=== PATIENT | female | born 1970 ===

== ENCOUNTER 2016-09-10 18:05 | Observation (INO) ==
[2016-09-10] MEDS ORDERED: ASPIRIN 325 MG TABLET PO STA (18:22)
[2016-09-10] MEDS ORDERED: NITROGLYCERIN 2% OINT 1 INCH/GM PACK TOP STA (18:22)
--- NOTE | 2016-09-10 18:25 | EKG Report ---
Stationary ECG Study [facility] ER Test Date: 09/10/2016 6:14:08 PM Pat Name: VALERIA HEATH Department: Room: Gender: F Nursing Staff Development Coordinator: : 1970 Requested by: Bebeto Delong Order Number: [id number] Reading MD: WHITNEY CERVANTES Intervals [place] Rate: 49 P: 53 [place]: 164 QRS: 100 QRSD: 103 T: 133 QT: 497 QTc: 467 Interpretive Statements SINUS BRADYCARDIA BORDERLINE RIGHT AXIS DEVIATION POSSIBLE INFERIOR MYOCARDIAL INFARCTION, PROBABLY OLD IF PRESENT Electronically Signed On 09-14-16 07:30:26 OCULAR CARE TECHNICIAN by WHITNEY CERVANTES [email or web address]
--- NOTE | 2016-09-10 18:28 | Emergency Department Note ---
Arrival - Arrival Chief Complaint: Chest Pain Stated Complaint: + TROPONIN ED Nursing Triage Note: PT TRANSFERED FROM [facility] FOR EVALUATION OF EPIGASTRIC PAIN AND + TROPONIN. PT HAD EPISODE OF BRADYCARDIA IN ROUTE WITH EMS AND RECIVED ATROPINE IV. Mode of Arrival: Stretcher Source: Patient Time Seen by Provider: 09/10/16 18:22 - History of Present Illness HPI Narrative: This 46-year-old female presents on transfer from [facility] where she presented for complaints of recurrent epigastric discomfort associated with nausea, burping, belching, and water brash for the past several days. During the course of workup she bradyed down to the 40s with especially irritating epigastric burning associated with a bump in troponins. For this reason she was transferred here for further evaluation. Currently the patient appears in no acute distress although during the ambulance ride here she did have to receive atropine because of the a drop in her heart rate to the low 40s. Currently her heart rate is in the mid 50s and she has no complaints of midepigastric burning at the moment. Onset (ago): week(s) (patient presents 1 week post-onset of symptoms) Allergies/Adverse Reactions: Allergies Allergy/AdvReac Type Severity Reaction Status Date / Time No Known Allergies Allergy Unverified 09/10/16 18:13 Review of System - Review of System 12 point system: reviewed and no additional remarkable complaints except as stated - Review of System Constitutional: Present: as per HPI Respiratory: Present: as per HPI Cardiovascular: Present: as per HPI Gastrointestinal: Present: as per HPI Medical,Surgical,& Family Hx - Medical History Cardio: History of: Hypertension Endocrine: History of: Diabetes Mellitus (IDDM) Gastrointestinal: History of: GERD - Social History Smoking Status: Unknown if ever smoked Exam Physical Examination: GENERAL: Morbidly obese female in no acute distress. HEENT: Normocephalic. No trauma. Moist mucous membranes. EOMI. PERRLA. ENT clear NECK: Supple. No adenopathy. CARDIAC: Regular. No murmurs. Heart rate 49 CHEST: Clear to auscultation. No respiratory distress. O2 sat 96% tender to palpation at the lower left anterior axillary line ABDOMEN: Soft. Nontender. Active bowel sounds. EXTREMITIES: No trauma. Normal ROM. No pedal edema. SKIN: No diaphoresis. No rash. NEURO: Alert. Neuro intact. No focal deficits. Vital Signs: Vital Signs Temperature 97.4 F L 09/10/16 19:04 Pulse Rate 52 L 09/10/16 19:04 Respiratory Rate 18 09/10/16 19:04 Blood Pressure 147/82 09/10/16 19:04 O2 Sat by Pulse Oximetry 96 09/10/16 18:30 Course - Reevaluation(s) Reevaluation #1: Discussed with patient the obvious, she will be referred for further evaluation. - Consultations Consultation #1: Discussed with Dr. Renae, hospitalist, who will admit for further evaluation treatment. Results - Labs Labs: I have reviewed the negative cardiac. - Impressions EKG sinus bradycardia at 49 with normal AR interval and QRS duration. Right axis deviation. Evidence of possible inferior IL of undetermined age - Diagnostic Findings Procedure: Chest x-ray: image reviewed by me, report reviewed by me (normal chest, no acute disease.) Disposition Clinical Impression: bradycardia, reflux Case discussed with: patient, patient's family Condition: Stable Time of Disposition: 19:43
[2016-09-10 18:35] LABS: PT Patient Result 10.2 SECS; Partial Thromboplastin Time 21.9 SECS (0-40)
[2016-09-10 18:43] LABS: Troponin I Only < 0.015 NG/ML (0.00-0.045)
[2016-09-10] MEDS ORDERED: ASPIRIN 325 MG TABLET ONE (18:45)
[2016-09-10] MEDS ORDERED: NITROGLYCERIN 2% OINT 1 INCH/GM PACK TOP ONE (18:45)
[2016-09-10] MEDS ORDERED: PANTOPRAZOLE 40 MG VIAL IV STA (18:58)
[2016-09-10] MEDS ORDERED: METOCLOPRAMIDE 10 MG/2 ML VIAL IV STA (18:58)
--- NOTE | 2016-09-10 19:06 | XRay Report ---
History: Chest pain Date: 09/10/2016 Study: Chest x-ray AP portable Comparison exam: Outside chest x-ray September 08, 2016 There is borderline cardiomegaly without change. The mediastinal contours are similar. The pulmonary vasculature is not engorged. There is no gross pleural effusion. There is mild platelike subsegmental atelectasis in the left lung base. The lungs and pleural spaces are otherwise clear. Osseous structures are unchanged. Impression: Mild platelike subsegmental atelectasis in the left lung base. Borderline cardiomegaly PROCEDURE INTERPRETED AT [facility] DEPARTMENT OF RADIOLOGY Final Report Signed by: Dr. Priti Bonilla
[2016-09-10] MEDS ORDERED: PANTOPRAZOLE 40 MG VIAL IV ONE (19:36)
[2016-09-10] MEDS ORDERED: METOCLOPRAMIDE 10 MG/2 ML VIAL ONE (19:37)
--- NOTE | 2016-09-10 19:50 | Hospitalist History & Physical ---
Assessment and Plan - Time spent with patient Time spent with patient: Greater than 30 minutes (1) Epigastric pain Status: Acute Assessment and plan: Patient will be admitted, begun on IV proton pump inhibitor, intravenous antiemetics, intravenous analgesics. Will await further laboratory studies and reevaluate in the a.m. If persistent and felt to be noncardiac, she may deserve formal gastroenterology consultation. He was concerned that this may be of cardiac origin, therefore will obtain serial cardiac isoenzymes however feel that she is at low risk. Current Visit: Yes (2) Diabetes mellitus Status: Chronic Assessment and plan: We will continue her routine home medical therapy and place her on Accu-Cheks and sliding scale insulin. Current Visit: Yes (3) Hypertension Status: Chronic Assessment and plan: She is currently well controlled. Will continue current medical regimen. Current Visit: Yes Qualifiers: Hypertension type: essential hypertension Qualified Code(s): I10 - Essential (primary) hypertension (4) Hyperlipidemia Status: Chronic Assessment and plan: Continue statin therapy. Current Visit: Yes (5) GE reflux Status: Chronic Assessment and plan: Beginning IV proton pump inhibitor. No plans above. Current Visit: Yes (6) Sinus bradycardia Status: Chronic Assessment and plan: Patient has sinus bradycardia and is on several medications which may cause this however she is asymptomatic, therefore we will not disturb any of her current regimen. Current Visit: Yes (7) Anemia Status: Chronic Assessment and plan: We will obtain stools for occult blood, anemia panel, and follow up hematocrit in the a.m. Current Visit: Yes History of Present Illness Chief complaint: Epigastric pain, nausea History of present illness: Ms. Duron is a 46 year old female who was transferred from [facility] secondary to epigastric pain, bradycardia, elevated troponin. She states that she has had epigastric discomfort for approximately 5 days with associated nausea and vomiting. She describes the pain as being constant, pressure-like, and worsened with oral intake. She denies any coffee-ground emesis, melena, hematochezia, fever, chills, chest pain, shortness of breath, cough, sputum production, palpitations, seizure, syncope, focal motor weakness or paresthesias. She does have a history of hypertension, diabetes mellitus, GE reflux disease. Home Medications Medication Instructions Recorded Confirmed Type Gabapentin Cap/Tab [Neurontin 600 mg PO BID 09/10/16 09/10/16 History Cap/Tab] Hydroxychloroquine [Plaquenil] 400 mg PO DAILY 09/10/16 09/10/16 History Insulin Aspart [NovoLOG FlexPen] 15 unit SUBCUT BIDAC 09/10/16 09/10/16 History Insulin Detemir [Levemir FlexPen] 46 unit SUBCUT BID W/MEALS 09/10/16 09/10/16 History Metoprolol Succinate Xl [Toprol Xl] 100 mg PO DAILY 09/10/16 09/10/16 History Pantoprazole Tab [Protonix Tab] 40 mg PO BID 09/10/16 09/10/16 History RX: Lisinopril 20 mg PO BID 09/10/16 09/10/16 History RX: Simvastatin 20 mg PO BEDTIME 09/10/16 09/10/16 History Ranitidine Tab [Zantac Tab] 150 mg PO BID 09/10/16 09/10/16 History Saxagliptin HCl [Onglyza] 2.5 mg PO DAILY 09/10/16 09/10/16 History Tramadol HCl [Tramadol Tab] 50 mg PO DAILY PRN 09/10/16 09/10/16 History amLODIPine [Norvasc] 10 mg PO DAILY 09/10/16 09/10/16 History cloNIDine TAB [Catapres Tab] 0.2 mg PO BID 09/10/16 09/10/16 History Allergies Allergy/AdvReac Type Severity Reaction Status Date / Time No Known Allergies Allergy Unverified 09/10/16 18:13 Medical,Surgical,& Family Hx - Medical History Cardio: History of: Hypertension Endocrine: History of: Diabetes Mellitus (IDDM) Gastrointestinal: History of: GERD - Surgical History Abdominal Surgeries: Surgical HX of: Cholecystectomy Reproductive Surgeries: Surgical HX of;: Hysterectomy - Family History Family History: noncontributory - Social History Smoking Status: Never smoker Frequency of Alcohol Use: None Type of Drug Use: None Marital Status: Lives With:: Spouse Functional capacity: independent ambulation 12 point system: reviewed and no additional remarkable complaints except as stated Exam - Constitutional Vitals: Period Temp Pulse Resp BP Sys/Lai Pulse Ox Last 24 Hr 97.4 F-97.4 F 48-52 16-18 147-150/82-92 96-96 General appearance: no acute distress - Head Head exam: Present: normocephalic, atraumatic - Eye Eye exam: Present: EOMI Pupils: Present: WINIFRED - ENT ENT exam: Present: normal oropharynx - Neck Neck exam: Present: normal inspection. Absent: lymphadenopathy, meningismus, tenderness, thyromegaly - Respiratory Respiratory exam: Present: clear to auscultation bilaterally. Absent: rales, rhonchi, wheezes - Cardiovascular Cardiovascular exam: Present: bradycardia, regular rate and rhythm. Absent: gallop, JVD, rubs, systolic murmur - GI/Abdominal GI/Abdominal exam: Present: normal bowel sounds, tenderness (Mild tenderness in the epigastrium without rebound), soft. Absent: distended, mass, organomegaly, rebound - Extremities Exam Extremities exam: Present: normal capillary refill. Absent: calf tenderness, edema - Back Exam Back exam: Present: normal inspection. Absent: CVA tenderness (L), CVA tenderness (R) - Neurological Exam Neurological exam: Present: alert, oriented X3, CN II-XII intact. Absent: motor sensory deficit - Psychiatric Psychiatric exam: Present: normal affect, normal mood. Absent: agitated, anxious - Skin Skin exam: Present: warm, dry. Absent: erythema, rash Results - Labs Lab Results: I have reviewed the past 24 hour labs Labs: Laboratory from [facility] reveals white blood count of 5.7, hemoglobin 11.4, hematocrit 32.7, platelet count 225,000, glucose 171, BUN 25, creatinine 1.5, sodium 158, potassium 3.9, chloride 116, liver function studies within normal limits, amylase 45, lipase 161, troponin 0.10, CK 133 with MB of 1.4. - EKG EKG shows: bradycardia, sinus rhythm - Diagnostic Findings Procedure: Chest x-ray: report reviewed by me
[2016-09-10 20:08] LABS: Alanine Aminotransferase 35 U/L (13-56); Albumin 1.5 G/DL (3.4-5.0); Alkaline Phosphatase 192 U/L (45-117); Amylase 46 U/L (25-115); Aspartate Amino Transferase 32 U/L (0-37); Bilirubin,Direct < 0.1 MG/DL (0.0-0.20); Bilirubin,Indirect 0.3 MG/DL (0.0-1.0); Bilirubin,Total < 0.39 MG/DL (0.2-1.0)
[2016-09-10] MEDS ORDERED: GLUCAGON 1 MG VIAL IM PRN (21:00)
[2016-09-10] MEDS ORDERED: DEXTROSE 50% 25 GM/50 ML VIAL IV PRN (21:00)
[2016-09-10] MEDS: GABAPENTIN 300 MG CAPSULE PO SCH (21:46)
[2016-09-10] MEDS: SIMVASTATIN 20 MG TABLET PO SCH (21:46)
[2016-09-10] MEDS: ENOXAPARIN 40 MG/0.4 ML SYRINGE SUBCUT SCH (21:47)
[2016-09-10] MEDS: LISINOPRIL 20 MG TABLET PO SCH (21:49)
[2016-09-10] MEDS: SODIUM CHLORIDE 0.45% 1,000 ML IV SCH (21:50)
[2016-09-10 22:19] LABS: Basophils % 0.4 % (0.0-0.8); Eosinophils # 0.1 10*3/uL (0.0-0.87); Hematocrit 34.3 VOL% (35.7-47.0); Hemoglobin 11.3 GM/DL (12.0-16.0); Immature Granulocytes % 0.2 %; Immature Granulocytes Absolute 0.01 #; Lymphocytes # 1.7 10*3/uL (1.4-4.0); Lymphocytes % 33.6 % (21.3-54.2); Mean Corpuscular HGB Conc 32.9 GM/DL (32-36); Mean Corpuscular Hemoglobin 28 PG (27-34); Mean Corpuscular Volume 86.2 FL (87-102); Mean Platelet Volume 10.7 FL (9.6-12.0); Monocytes # 0.3 10*3/uL (0.11-0.8); Monocytes % 5.9 % (1.7-12.7); Neutrophils % 58.9 % (38.7-73.9); Platelet Count 161 T/CUMM (130-400); Red Blood Count 3.98 MC/CUMM (3.8-5.5); Red Cell Distribution Width 14.2 % (9.3-17.3); White Blood Count 5.1 T/CUMM (4-12)
[2016-09-10 22:52] LABS: Folate 10.5 NG/ML (5.4-24.0); Vitamin B12 358 PG/ML (211-911)
[2016-09-10 23:07] LABS: Calcium 8.2 MG/DL (8.5-10.1); Osmolality,Calculated 293.6 MOS/KG (273-304); Potassium 3.4 MMOL/L (3.5-5.1)
[2016-09-10 23:22] LABS: Sedimentation Rate-Westergren 71 MM/HR (0-20)
--- NOTE | 2016-09-11 00:01 | EKG Report ---
Please refer to the EKG image. Final interpretation is pending.
--- NOTE | 2016-09-11 03:12 | EKG Report ---
Please refer to the EKG image. Final interpretation is pending.
--- NOTE | 2016-09-11 06:21 | EKG Report ---
Stationary ECG Study [facility] Test Date: 09/10/2016 9:08:41 PM Pat Name: VALERIA HEATH Department: Room: 117 Gender: F Fabric Lay Out Worker: GUILLERMO QUIJANO : 1970 Requested by: Baljeet Olivas Order Number: [id number] Reading MD: WHITNEY CERVANTES Intervals [place] Rate: 43 P: 23 DC: 162 QRS: 8 QRSD: 101 T: 163 QT: 514 QTc: 459 Interpretive Statements SINUS BRADYCARDIA MODERATE T-WAVE ABNORMALITY, CONSIDER LATERAL ISCHEMIA Electronically Signed On 09-14-16 07:34:05 SENIOR COBOL DEVELOPER by WHITNEY CERVANTES [email or web address]
[2016-09-11 07:38] LABS: Hemoglobin A1 (Alkaline) 97.7 % (96.5-98.5); Hemoglobin A2 (Alkaline) 2.3 % (1.5-3.5)
[2016-09-11] MEDS: ONDANSETRON 4 MG/2 ML VIAL IV PRN ×2 (07:44→22:17)
[2016-09-11] MEDS: MORPHINE 2 MG/1 ML SYRINGE IV PRN ×2 (07:47→22:20)
[2016-09-11 07:54] LABS: Basophils % 0.3 % (0.0-0.8); Eosinophils % 0.5 % (0.00-10.9); Hemoglobin 11.2 GM/DL (12.0-16.0); Immature Granulocytes % 0.5 %; Immature Granulocytes Absolute 0.03 #; Lymphocytes # 1.5 10*3/uL (1.4-4.0); Lymphocytes % 24.8 % (21.3-54.2); Mean Corpuscular HGB Conc 32.9 GM/DL (32-36); Mean Corpuscular Hemoglobin 28 PG (27-34); Mean Corpuscular Volume 85.9 FL (87-102); Mean Platelet Volume 10.7 FL (9.6-12.0); Monocytes # 0.3 10*3/uL (0.11-0.8); Monocytes % 5.5 % (1.7-12.7); Neutrophils # 4.2 10*3/uL (1.4-7.4); Neutrophils % 68.4 % (38.7-73.9); Platelet Count 170 T/CUMM (130-400); Red Blood Count 3.96 MC/CUMM (3.8-5.5); Red Cell Distribution Width 14.1 % (9.3-17.3); White Blood Count 6.2 T/CUMM (4-12)
[2016-09-11 08:32] LABS: Alanine Aminotransferase 30 U/L (13-56); Albumin 2.6 G/DL (3.4-5.0); Alkaline Phosphatase 163 U/L (45-117); Aspartate Amino Transferase 28 U/L (0-37); Bilirubin,Total < 0.39 MG/DL (0.2-1.0); Blood Urea Nitrogen 21 MG/DL (7-18); Calcium 8.3 MG/DL (8.5-10.1); Glucose 105 MG/DL (74-106); Osmolality,Calculated 290.7 MOS/KG (273-304); Potassium 3.9 MMOL/L (3.5-5.1); Sodium 145 MMOL/L (136-145); Total Protein 6.7 G/DL (6.4-8.3)
--- NOTE | 2016-09-11 08:48 | Hospitalist Progress Note ---
Assessment and Plan (1) Epigastric pain Status: Acute Assessment and plan: Could be due to gastroparesis with history of diabetes and long-term history. History of GERD may contributing to the pain she is already on PPI. Consult GI bili Current Visit: Yes (2) Anemia Status: Chronic Assessment and plan: Stable Current Visit: Yes (3) Diabetes mellitus Status: Chronic Assessment and plan: Blood sugar is controlled continue current regimen Current Visit: Yes (4) Hypertension Status: Chronic Assessment and plan: Continue current blood pressure medications except I will change the dose of beta milan Current Visit: Yes Qualifiers: Hypertension type: essential hypertension Qualified Code(s): I10 - Essential (primary) hypertension (5) Sinus bradycardia Status: Chronic Assessment and plan: Probably due to medications patient has been on beta milan and clonidine. I will cut down the metoprolol to 50 mg daily Current Visit: Yes (6) Elevated troponin Status: Acute Assessment and plan: Patient had elevated troponin at outside facilities but here it has been normal. I'm not sure what caused it possible hypertension with bradycardia we' ll consult cardiology but I doubt it is secondary to acute coronary syndrome Current Visit: Yes Hospitalist: Subjective Interval history: Ms. Duron is a 46 year old female with hypertension and diabetes mellitus and GERD. She was admitted yesterday as transfer from [facility]. She presented with epigastric pain bradycardia and had the hypertension with elevated troponin. According to patient she has epigastric discomfort/pain . She had the EGD last year and was told to have a acid reflux was listed to be on Protonix at home. She had troponin of 0.1 at outside facility. She had hypotension as low as 102/39. She her heart rate was in the 40s. She had been on multiple medications at home including clonidine and metoprolol 100 mg daily Exam - Constitutional Vitals: Period Temp Pulse Resp BP Sys/Lai Pulse Ox Last 24 Hr 97.9 F-98.1 F 43-46 11-16 119-128/60-72 95-97 General appearance: no acute distress, over weight - Eye Eye exam: Present: EOMI Pupils: Present: WINIFRED - Respiratory Respiratory exam: Present: clear to auscultation bilaterally. Absent: rales, rhonchi - Cardiovascular Cardiovascular exam: Present: bradycardia, regular rate and rhythm - GI/Abdominal GI/Abdominal exam: Present: normal bowel sounds, soft. Absent: distended, tenderness (but mild discomfort in epigastric area no rigidity or rebound) - Extremities Exam Extremities exam: Present: normal inspection. Absent: edema - Neurological Exam Neurological exam: Present: alert, oriented X3 Results - Labs CBC & BMP: 09/11/16 07:14 09/11/16 07:14 Lab Results: I have reviewed the past 24 hour labs
[2016-09-11] MEDS ORDERED: METOPROLOL SUCCINATE XL 50 MG TABLET PO ONE (08:55)
[2016-09-11] MEDS: INSULIN LISPRO 100 UNIT/ML SUBCUT SCH ×2 (08:57→16:42)
[2016-09-11] MEDS: INSULIN GLARGINE 100 UNIT/ML SUBCUT SCH ×2 (08:57→16:42)
[2016-09-11] MEDS ORDERED: METOPROLOL SUCCINATE XL 100 MG TABLET PO SCH (09:00)
[2016-09-11] MEDS: HYDROXYCHLOROQUINE 200 MG TABLET PO SCH (09:24)
[2016-09-11] MEDS: ASPIRIN EC 325 MG TABLET PO SCH (09:24)
[2016-09-11] MEDS: GABAPENTIN 300 MG CAPSULE PO SCH ×2 (09:24→20:27)
[2016-09-11] MEDS: sitaGLIPtin 100 MG TABLET PO SCH (09:24)
[2016-09-11] MEDS: PANTOPRAZOLE 40 MG VIAL IV SCH (09:25)
[2016-09-11] MEDS: SODIUM CHLORIDE 0.45% 1,000 ML IV SCH ×3 (09:29→20:32)
--- NOTE | 2016-09-11 10:56 | Gastrointestinal Consult Note ---
<Diane Borjas - Last Filed: 09/11/16 10:50> Assessment and Plan (1) Epigastric pain Status: Acute Assessment and plan: 09/11-Long history of episodes of epigastric pain with nausea, vomiting with hx of gastroparesis, now with worsening pain and N/V x 1 week with inability to eat /drink. Elevated troponin on admission, now normal. Cardiac consult pending. Last EGD 2011 with gastritis, GES with delayed emptying. Plan and addendum to follow by Dr Steinberg. Current Visit: Yes History of Present Illness Chief complaint: Abd pain, nausea, vomiting History of present illness: Ms. Duron is a 46 year old female who presented to the hospital with onset of nausea, vomiting and epigastric pain x 1 week. Pt states that last Sunday she had onset of worsening epigastric pain, that does not radiate, with nausea and vomiting .She states initially she vomited up undigested food however midweek it was solely bile. She states that everytime she eats she has onset of epigastric pain, which she states lingers for a long time and is not easily relieved. She states she stopped eating on however continued to have some nausea and dry heaves. The pain was not as severe as long as she didnt eat. She reports that she has reflux that is not controlled with Protonix BID. Denies any dysphagia. Denies any melena or hematochezia. She had her gallbladder removed 20 years ago however did not have history of gallstones. States that she does not take any NSAIDs. States her weight fluctuates regularly. Her blood sugar is reported to be controlled recenlty. She also had some bradycardia on admission as well as elevated troponin which has now normalized. She has a history of gastritis in the past and notation seen regarding gastroparesis. She states she has had the nausea and vomiting episodes with the epigastric pain off and on for years however not as intense as the last week. Gastric emptying scan in 2011 showed delayed emptying. EGD in 2011 showed gastritis. She had a flex sig in 1994 for rectal bleeding with internal hemmorhoids noted. Has history of uterine cancer in 2008 with hysterectomy and radiation. Home Medications Medication Instructions Recorded Confirmed Type Gabapentin Cap/Tab [Neurontin 600 mg PO BID 09/10/16 09/10/16 History Cap/Tab] Hydroxychloroquine [Plaquenil] 400 mg PO DAILY 09/10/16 09/10/16 History Insulin Aspart [NovoLOG FlexPen] 15 unit SUBCUT BIDAC 09/10/16 09/10/16 History Insulin Detemir [Levemir FlexPen] 46 unit SUBCUT BID W/MEALS 09/10/16 09/10/16 History Lisinopril 20 mg PO BID 09/10/16 09/10/16 History Metoprolol Succinate Xl [Toprol Xl] 100 mg PO DAILY 09/10/16 09/10/16 History Pantoprazole Tab [Protonix Tab] 40 mg PO BID 09/10/16 09/10/16 History Ranitidine Tab [Zantac Tab] 150 mg PO BID 09/10/16 09/10/16 History Saxagliptin HCl [Onglyza] 2.5 mg PO DAILY 09/10/16 09/10/16 History Simvastatin 20 mg PO BEDTIME 09/10/16 09/10/16 History Tramadol HCl [Tramadol Tab] 50 mg PO DAILY PRN 09/10/16 09/10/16 History amLODIPine [Norvasc] 10 mg PO DAILY 09/10/16 09/10/16 History cloNIDine TAB [Catapres Tab] 0.2 mg PO BID 09/10/16 09/10/16 History Allergies Allergy/AdvReac Type Severity Reaction Status Date / Time No Known Allergies Allergy Unverified 09/10/16 18:13 Medical,Surgical,& Family Hx - Medical History Cardio: History of: Hypertension Endocrine: History of: Diabetes Mellitus (IDDM) Gastrointestinal: History of: GERD - Surgical History Abdominal Surgeries: Surgical HX of: Cholecystectomy Reproductive Surgeries: Surgical HX of;: Hysterectomy - Social History Smoking Status: Never smoker Frequency of Alcohol Use: None Type of Drug Use: None 12 point system: reviewed and no additional remarkable complaints except as stated - Constitutional Constitutional: Present: as per HPI - EENT Eyes: Present: as per HPI Ears: Present: as per HPI Nose, mouth and throat: Present: as per HPI - Cardiovascular Cardiovascular: Present: as per HPI - Respiratory Respiratory: Present: as per HPI - Gastrointestinal Gastrointestinal: Present: as per HPI, abdominal pain, dyspepsia, heartburn, nausea, vomiting - Genitourinary Genitourinary: Present: as per HPI - Musculoskeletal Musculoskeletal: Present: as per HPI - Neurological Neurological: Present: as per HPI - Psychiatric Psychiatric: Present: as per HPI - Endocrine Endocrine: Present: as per HPI - Hematologic/Lymphatic Hematologic/Lymphatic: Present: as per HPI Exam - Constitutional Vitals: Period Temp Pulse Resp BP Sys/Lai Pulse Ox Last 24 Hr 97.8 F-98.1 F 43-49 11-18 119-129/60-83 95-97 General appearance: no acute distress, over weight - Head Head exam: Present: normal inspection, normocephalic - Eye Eye exam: Present: other (lids and conjunctiva unremarkable). Absent: scleral icterus - ENT ENT exam: Present: normal exam, normal oropharynx - Neck Neck exam: Present: normal inspection - Respiratory Respiratory exam: Present: clear to auscultation bilaterally. Absent: rales, rhonchi, wheezes - Cardiovascular Cardiovascular exam: Present: regular rate and rhythm. Absent: diastolic murmur , JVD, systolic murmur - GI/Abdominal GI/Abdominal exam: Present: normal bowel sounds, soft. Absent: ascites, distended, mass, organomegaly, tenderness - Extremities Exam Extremities exam: Present: normal inspection, full ROM - Back Exam Back exam: Present: normal inspection - Neurological Exam Neurological exam: Present: alert, oriented X3 - Psychiatric Psychiatric exam: Present: normal affect, normal mood - Skin Skin exam: Present: normal color, warm, dry Results - Labs CBC & BMP: 09/11/16 07:14 09/11/16 07:14 Lab Results: I have reviewed the past 24 hour labs <Dionte Steinberg - Last Filed: 09/11/16 18:19> History of Present Illness History of present illness: Ms. Duron is a 46 year old female Exam - Constitutional Vitals: Period Temp Pulse Resp BP Sys/Lai Pulse Ox Last 24 Hr 96.9 F-98.1 F 43-56 11-20 119-144/60-83 95-97 Results - Labs CBC & BMP: 09/11/16 07:14 09/11/16 07:14
[2016-09-11] MEDS: amLODIPine 10 MG TABLET PO SCH (11:22)
[2016-09-11] MEDS: LISINOPRIL 20 MG TABLET PO SCH ×2 (11:23→20:28)
[2016-09-11] MEDS: SIMVASTATIN 20 MG TABLET PO SCH (20:28)
[2016-09-11] MEDS: ENOXAPARIN 40 MG/0.4 ML SYRINGE SUBCUT SCH (20:29)
--- NOTE | 2016-09-12 00:17 | Cardiology Consult Note ---
I, Yue Alexander, RN, am scribing for, and in the presence of, Alex Alegria MD 00:16. Assessment and Plan (1) Elevated troponin Status: Acute Assessment and plan: Patient was noted to have a troponin of 0.1 at outside facility. However, troponin has been negative 4 checks here at [facility]. [I saw the patient on 09/11/13 , early in the day . The note is being finished later ]The patient is epigastric pain. GI related. Although the outside troponin was elevated, troponins here are negative, suggesting it may be a false positive finding. I do not believe she has ACS/ischemia. At Meanwhile, her bradycardia treated by holding the metoprolol Current Visit: Yes (2) Epigastric pain Status: Acute Assessment and plan: Patient continues to complain of epigastric pain. This is being worked up per GI. Current Visit: Yes (3) Diabetes mellitus Status: Chronic Assessment and plan: Continue current plan of care. Current Visit: Yes (4) GE reflux Status: Chronic Assessment and plan: Continue current plan of care. Current Visit: Yes (5) Hyperlipidemia Status: Chronic Assessment and plan: Continue current plan of care with statin. Will check lipid panel in the morning. Current Visit: Yes (6) Hypertension Status: Chronic Assessment and plan: Metoprolol has been stopped due to patient's bradycardia. Blood pressure is currently well controlled, continue current plan of care. Current Visit: Yes Qualifiers: Hypertension type: essential hypertension Qualified Code(s): I10 - Essential (primary) hypertension (7) Sinus bradycardia Status: Acute Assessment and plan: Metoprolol has been held due to patient's bradycardia. This is clinically stable with heart rates in the 50s. Patient is asymptomatic. Current Visit: Yes (8) Obesity Status: Chronic Assessment and plan: Counseled patient on the importance of weight loss. Current Visit: Yes History of Present Illness - Data of Consult Patient: new to practice Consult date: 09/11/16 Requesting Physician: Andreas Cavanaugh Primary care physician: Claude Delgado III. - Consult Narrative Reason for consult: elevated troponin and bradycardia History of present illness: Ms. Duron is a 46 year old female without known coronary artery disease. 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 She tells me that her primary care provider is Dr. Delgado. She was transferred to our facility from [facility] for further evaluation of abdominal pain and elevated troponin. Her troponin was noted to be 0.1 at outside facility on September 10. Patient has risk factors significant for obesity, dyslipidemia, diabetes, sedentary lifestyle and hypertension. She reports that she has never smoked in the past and does not have any significant family history of heart disease. She has a past medical history of GERD and had an EGD in 2011 which revealed gastritis. GI has been consulted for further evaluation of patient's abdominal pain. Patient was in her usual state of health until last Sunday when she began to experience epigastric pain. This pain is nonradiating and is associated with nausea, vomiting, dizziness and diarrhea. Patient denies chest pain, shortness of breath, palpitations, orthopnea, melena, hematochezia, dysphagia and PND. She reports that she only experiences the epigastric pain after eating meals. However, she is unable to tell me what type of foods aggravate her pain. This pain is not easily relieved and usually lasts several hours after meals. She reports that activity does not worsen her pain. She denies any worsening of activity intolerance or dyspnea upon exertion. Patient was seen and evaluated in the ICU. She is awake and in no acute distress. Her is at bedside. She reports that she continues to have mild epigastric pain. Her abdomen is tender upon palpation in the epigastric region. Her troponin has been negative 4 checks here at [facility]. However, at [facility] her troponin was noted to be 0.1. She continues to to be chest pain-free. Patient has been bradycardic this admission with heart rates in the 40's. She continues to be bradycardic today with heart rate in the 50s. Her metoprolol 100 mg has been held per hospitalist. Labs have been reviewed and are unremarkable. Her EKG reveals sinus bradycardia with nonspecific ST [id number] changes. CC: Andreas Cavanaugh M.D. - Home Medications and Allergies Home Medications: Home Medications Medication Instructions Recorded Confirmed Type Gabapentin Cap/Tab [Neurontin 600 mg PO BID 09/10/16 09/10/16 History Cap/Tab] Hydroxychloroquine [Plaquenil] 400 mg PO DAILY 09/10/16 09/10/16 History Insulin Aspart [NovoLOG FlexPen] 15 unit SUBCUT BIDAC 09/10/16 09/10/16 History Insulin Detemir [Levemir FlexPen] 46 unit SUBCUT BID W/MEALS 09/10/16 09/10/16 History Lisinopril 20 mg PO BID 09/10/16 09/10/16 History Metoprolol Succinate Xl [Toprol Xl] 100 mg PO DAILY 09/10/16 09/10/16 History Pantoprazole Tab [Protonix Tab] 40 mg PO BID 09/10/16 09/10/16 History Ranitidine Tab [Zantac Tab] 150 mg PO BID 09/10/16 09/10/16 History Saxagliptin HCl [Onglyza] 2.5 mg PO DAILY 09/10/16 09/10/16 History Simvastatin 20 mg PO BEDTIME 09/10/16 09/10/16 History Tramadol HCl [Tramadol Tab] 50 mg PO DAILY PRN 09/10/16 09/10/16 History amLODIPine [Norvasc] 10 mg PO DAILY 09/10/16 09/10/16 History cloNIDine TAB [Catapres Tab] 0.2 mg PO BID 09/10/16 09/10/16 History Allergies/Adverse Reactions: Allergies Allergy/AdvReac Type Severity Reaction Status Date / Time No Known Allergies Allergy Unverified 09/10/16 18:13 - Constitutional Constitutional: Absent: anorexia, chills, fatigue, fever(s), frequent falls, headache(s), malaise, night sweats, weakness, weight gain, weight loss - Cardiovascular Cardiovascular: Present: lightheadedness. Absent: chest pain at rest, chest pain with activity, claudication, diaphoresis, dyspnea, dyspnea on exertion, edema, radiating jaw, neck or arm pain, orthopnea, palpitations, PND - Respiratory Respiratory: Absent: cough, dyspnea, hemoptysis, dyspnea on exertion, wheezing, pain on inspiration, change in phlegm color - Gastrointestinal Gastrointestinal: Present: abdominal pain (For 1 week), diarrhea, heartburn, nausea, vomiting. Absent: coffee ground emesis, dyspepsia, dysphagia, hematemesis, hematochezia, melena - Neurological Neurological: Present: dizziness. Absent: abnormal gait, behavioral changes, frequent falls, syncope - Psychiatric Psychiatric: Absent: anxiety, depression, panic attacks Medical,Surgical,& Family Hx - Medical History Cardio: History of: Hypertension Endocrine: History of: Diabetes Mellitus (IDDM), Dyslipidemia Gastrointestinal: History of: GERD, GI Problems (Gastritis) - Surgical History Abdominal Surgeries: Surgical HX of: Cholecystectomy, EGD Reproductive Surgeries: Surgical HX of;: Hysterectomy - Social History Smoking Status: Never smoker Frequency of Alcohol Use: None Type of Drug Use: None Physical Examination Vital Signs Temp Pulse Resp BP Pulse Ox 97.4 F L 52 L 18 147/82 96 09/10/16 18:05 09/10/16 18:05 09/10/16 18:05 09/10/16 18:05 09/10/16 18:05 General: Present: Appears Well, No Apparent Distress Neck: Present: Supple Neck, Midline Trachea, No JVD/HJR, No Masses, No Bruit, No Lymphadenopathy, No Thyromegaly Cardiac: Present: Regular Rhythm, S1/S2, No Murmur, Bradycardia, Other (Sinus rhythm with bradycardia). Absent: Gallop Lungs: Present: Normal Exam, Clear Ascult./Percussion, Normal Breath Sounds, No Wheeze, Rales, Rhonchi Abdomen: Present: Soft, Active Bowel Sounds, No Masses, Tender Skin: Present: Clear. Absent: Rash, Suspicious Lesions, Ulceration Extremities: Present: Normal Gait, No Clubbing, No Cyanosis, No Edema, Normal Upper Extr. Pulses, Normal Lower Extr. Pulses Result/EKG - Labs CBC & BMP: 09/11/16 07:14 09/11/16 07:14 Lab Results: I have reviewed the past 24 hour labs Labs: Laboratory Results - last 24 hr 09/10/16 09/10/16 09/10/16 21:37 21:37 21:37 WBC 5.1 RBC 3.98 Hgb 11.3 L Hct 34.3 L MCV 86.2 L MCH 28 MCHC 32.9 RDW 14.2 Plt Count 161 MPV 10.7 Neut % (Auto) 58.9 Lymph % (Auto) 33.6 [place] % (Auto) 5.9 Eos % (Auto) 1.0 Baso % (Auto) 0.4 Neut # (Auto) 3.0 Lymph # (Auto) 1.7 [place] # (Auto) 0.3 Eos # (Auto) 0.1 Baso # (Auto) 0.0 Immature Gran % 0.2 Nucleated RBC % 0.0 Immature Gran # 0.01 Nucleated RBCs # 0.00 Anemia Panel Interp See comment ESR Westergren 71 H Absolute Retic 0.1 Percent Retic 2.0 H Retic Hgb Equivalent 32.3 Hemoglobin A1 Hemoglobin A2 Hgb ELP Interp Sodium Potassium Chloride Carbon Dioxide Anion Gap BUN Creatinine GFR Calculation BUN/Creatinine Ratio Glucose POC Glucose Calculated Osmolality Calcium Ferritin 19.0 Total Bilirubin AST ALT Alkaline Phosphatase Troponin I < 0.015 Total Protein Albumin Globulin Albumin/Globulin Ratio Vitamin B12 Folate BELA (IgG-AHG) BELA, Polyspecific 09/10/16 09/10/16 09/10/16 21:37 21:37 22:18 WBC RBC Hgb Hct MCV MCH MCHC RDW Plt Count MPV Neut % (Auto) Lymph % (Auto) [place] % (Auto) Eos % (Auto) Baso % (Auto) Neut # (Auto) Lymph # (Auto) [place] # (Auto) Eos # (Auto) Baso # (Auto) Immature Gran % Nucleated RBC % Immature Gran # Nucleated RBCs # Anemia Panel Interp ESR Westergren Absolute Retic Percent Retic Retic Hgb Equivalent Hemoglobin A1 97.7 Hemoglobin A2 2.3 Hgb ELP Interp See comment Sodium 146 H Potassium 3.4 L Chloride 107 Carbon Dioxide 29 Anion Gap 13.4 BUN 24 H Creatinine 1.10 H GFR Calculation 68 BUN/Creatinine Ratio 21.00 H Glucose 106 POC Glucose Calculated Osmolality 293.6 Calcium 8.2 L Ferritin Total Bilirubin AST ALT Alkaline Phosphatase Troponin I Total Protein Albumin Globulin Albumin/Globulin Ratio Vitamin B12 358 Folate 10.5 BELA (IgG-AHG) Negative BELA, Polyspecific Negative 09/11/16 09/11/16 09/11/16 00:27 07:14 07:14 WBC 6.2 RBC 3.96 Hgb 11.2 L Hct 34.0 L MCV 85.9 L MCH 28 MCHC 32.9 RDW 14.1 Plt Count 170 MPV 10.7 Neut % (Auto) 68.4 Lymph % (Auto) 24.8 [place] % (Auto) 5.5 Eos % (Auto) 0.5 Baso % (Auto) 0.3 Neut # (Auto) 4.2 Lymph # (Auto) 1.5 [place] # (Auto) 0.3 Eos # (Auto) 0.0 Baso # (Auto) 0.0 Immature Gran % 0.5 Nucleated RBC % 0.0 Immature Gran # 0.03 Nucleated RBCs # 0.00 Anemia Panel Interp ESR Westergren Absolute Retic Percent Retic Retic Hgb Equivalent Hemoglobin A1 Hemoglobin A2 Hgb ELP Interp Sodium Potassium Chloride Carbon Dioxide Anion Gap BUN Creatinine GFR Calculation BUN/Creatinine Ratio Glucose POC Glucose Calculated Osmolality Calcium Ferritin Total Bilirubin AST ALT Alkaline Phosphatase Troponin I < 0.015 < 0.015 Total Protein Albumin Globulin Albumin/Globulin Ratio Vitamin B12 Folate BELA (IgG-AHG) BELA, Polyspecific 09/11/16 09/11/16 07:14 08:11 WBC RBC Hgb Hct MCV MCH MCHC RDW Plt Count MPV Neut % (Auto) Lymph % (Auto) [place] % (Auto) Eos % (Auto) Baso % (Auto) Neut # (Auto) Lymph # (Auto) [place] # (Auto) Eos # (Auto) Baso # (Auto) Immature Gran % Nucleated RBC % Immature Gran # Nucleated RBCs # Anemia Panel Interp ESR Westergren Absolute Retic Percent Retic Retic Hgb Equivalent Hemoglobin A1 Hemoglobin A2 Hgb ELP Interp Sodium 145 Potassium 3.9 Chloride 108 H Carbon Dioxide 30 Anion Gap 10.9 BUN 21 H Creatinine 1.00 GFR Calculation 76 BUN/Creatinine Ratio 21.00 H Glucose 105 POC Glucose 104 Calculated Osmolality 290.7 Calcium 8.3 L Ferritin Total Bilirubin < 0.39 AST 28 ALT 30 Alkaline Phosphatase 163 H Troponin I Total Protein 6.7 Albumin 2.6 L Globulin 4.1 H Albumin/Globulin Ratio 0.6 L Vitamin B12 Folate BELA (IgG-AHG) BELA, Polyspecific - EKG EKG results: interpreted by me, sinus rhythm EKG shows: bradycardia I, Alex Alegria MD, personally performed the services described in this documentation, ascribed by Yue Alexander, RN in my presence, and it is both accurate and complete .
[2016-09-12 06:27] LABS: Risk Ratio 2.64; VLDL CHOLESTEROL 31.4 MG/DL
[2016-09-12] MEDS: SODIUM CHLORIDE 0.45% 1,000 ML IV SCH ×2 (06:30→13:11)
[2016-09-12] MEDS ORDERED: fentaNYL 100 MCG/2 ML VIAL ONE (10:16)
[2016-09-12] MEDS ORDERED: LIDOCAINE 2% 5 ML VIAL ONE (10:33)
[2016-09-12] MEDS ORDERED: PROPOFOL 200 MG/20 ML VIAL IV ONE (10:33)
--- NOTE | 2016-09-12 10:36 | History and Physical Update ---
History and Physical Update - Physical Exam Mental Status: alert and oriented Heart: regular rate and rhythm Lung: clear to auscultation Abdomen: within normal limits Vitals: within normal limits
--- NOTE | 2016-09-12 10:45 | Anesthesia ---
Anesthesia Post OP - Post Ansesthetic Evaluation Patient seen in post op: Yes Resp: within normal limits CV: within normal limits Mental: within normal limits Temp: within normal limits [id number]: within normal limits Nausea and Vomiting: within normal limits Pain: within normal limits
--- NOTE | 2016-09-12 10:45 | Operative Note ---
Date of procedure: 09/12/16 Pre-op diagnosis: recurrent nausea and vomiting Procedure: EGD 46-year-old female with recurrent nausea and vomiting questionable history of gastroparesis the past now for EGD to look for evidence of gastric outlet obstruction. Informed consent was obtained the patient She was sedated with Mac anesthesia wrist each protocol. Patient placed in left lateral decubitus position the Olympus flexible video upper endoscope was inserted into the oral cavity under direct vision the esophagus was intubated. Findings esophagus-normal esophageal mucosa throughout. No significant esophageal stricture or esophagitis was seen no varices were noted. Stomach-normal insufflation normal mucosa to direct retroflex views of the body fundus cardia antral stomach. Pylorus-normal Duodenum-normal bulb the duodenum to the third portion of duodenum. The procedure was terminated. Postop diagnosis: #1 recurrent nausea and vomiting no clear etiology on EGD suspected gastroparesis will recheck gastric emptying scan in a.m. Anesthesia: MAC Surgeon / Physician: Dionte Steinberg Estimated blood loss: none Specimens: none sent Condition: stable Disposition: post procedure unit Results - Labs CBC & BMP: 09/11/16 07:14 09/11/16 07:14 Discharge Plan - Discharge Medications No Action Gabapentin Cap/Tab [Neurontin Cap/Tab] 600 mg PO BID amLODIPine [Norvasc] 10 mg PO DAILY Saxagliptin HCl [Onglyza] 2.5 mg PO DAILY Hydroxychloroquine [Plaquenil] 400 mg PO DAILY Lisinopril 20 mg PO BID cloNIDine TAB [Catapres Tab] 0.2 mg PO BID Ranitidine Tab [Zantac Tab] 150 mg PO BID Tramadol HCl [Tramadol Tab] 50 mg PO DAILY PRN PRN Reason: Pain Insulin Detemir [Levemir FlexPen] 46 unit SUBCUT BID W/MEALS Insulin Aspart [NovoLOG FlexPen] 15 unit SUBCUT BIDAC Simvastatin 20 mg PO BEDTIME Pantoprazole Tab [Protonix Tab] 40 mg PO BID Metoprolol Succinate Xl [Toprol Xl] 100 mg PO DAILY - Follow Up or Referral - Forms/Instructions
--- NOTE | 2016-09-12 11:56 | Hospitalist Progress Note ---
Assessment and Plan (1) Epigastric pain Status: Acute Assessment and plan: Likely due to gastroparesis have negative EGD. Patient followed by the GI will continue a PPI Current Visit: Yes (2) Anemia Status: Chronic Assessment and plan: Stable Current Visit: Yes (3) Diabetes mellitus Status: Chronic Assessment and plan: Blood sugar is controlled continue current regimen Current Visit: Yes (4) Hypertension Status: Chronic Assessment and plan: Blood pressure is elevated today she did not take her medications morning will restart on that except metoprolol. She isn't on thiazide diuretics may be due to be added if the blood pressure is not controlled Current Visit: Yes Qualifiers: Hypertension type: essential hypertension Qualified Code(s): I10 - Essential (primary) hypertension (5) Sinus bradycardia Status: Acute Assessment and plan: Probably due to medications patient had been on beta milan and clonidine. She is off metoprolol now heart rate is around 60 now Current Visit: Yes (6) Elevated troponin Status: Acute Assessment and plan: Patient had elevated troponin at outside facilities but here it has been normal. I'm not sure what caused it possible hypertension with bradycardia. Cardiology was consulted and feel the same that acute coronary syndrome is not suspected Current Visit: Yes Hospitalist: Subjective Interval history: Ms. Duron is a 46 year old female with hypertension and diabetes mellitus and GERD. She was admitted yesterday as transfer from [facility]. She presented with epigastric pain bradycardia and had the hypotension with elevated troponin. According to patient she has epigastric discomfort/pain . She had the EGD last year and was told to have a acid reflux was listed to be on Protonix at home. She had troponin of 0.1 at outside facility. She had hypotension as low as 102/39. She her heart rate was in the 40s. She had been on multiple medications at home including clonidine and metoprolol 100 mg daily. I had cut down the metoprolol from 100-50 mg daily. Patient was seen by the cardiology and had completely stopped the medication Patient also seen by the GI and underwent EGD this morning and it was reported negative they plan to do gastric emptying studies tomorrow morning. Patient has nausea otherwise no vomiting. She reports constipation Exam - Constitutional Vitals: Period Temp Pulse Resp BP Sys/Lai Pulse Ox Last 24 Hr 96.9 F-97.7 F 54-63 18-20 138-189/71-99 93-99 General appearance: no acute distress - Respiratory Respiratory exam: Present: clear to auscultation bilaterally. Absent: rales, rhonchi - Cardiovascular Cardiovascular exam: Present: bradycardia (heart rate is borderline), regular rate and rhythm. Absent: tachycardia - GI/Abdominal GI/Abdominal exam: Present: normal bowel sounds, soft. Absent: distended, tenderness (but mild discomfort on palpation left side upper abdomen) - Extremities Exam Extremities exam: Present: normal inspection. Absent: edema - Neurological Exam Neurological exam: Present: alert, oriented X3 Results - Labs CBC & BMP: 09/11/16 07:14 09/11/16 07:14 Lab Results: I have reviewed the past 24 hour labs
[2016-09-12] MEDS: ASPIRIN EC 325 MG TABLET PO SCH (13:09)
[2016-09-12] MEDS: INSULIN LISPRO 100 UNIT/ML SUBCUT SCH ×2 (13:09→21:17)
[2016-09-12] MEDS: sitaGLIPtin 100 MG TABLET PO SCH (13:09)
[2016-09-12] MEDS: INSULIN GLARGINE 100 UNIT/ML SUBCUT SCH ×2 (13:09→21:19)
[2016-09-12] MEDS: HYDROXYCHLOROQUINE 200 MG TABLET PO SCH (13:10)
[2016-09-12] MEDS: GABAPENTIN 300 MG CAPSULE PO SCH ×2 (13:10→21:18)
[2016-09-12] MEDS: LISINOPRIL 20 MG TABLET PO SCH (13:10)
[2016-09-12] MEDS: amLODIPine 10 MG TABLET PO SCH (13:10)
[2016-09-12] MEDS: PANTOPRAZOLE 40 MG VIAL IV SCH (13:11)
--- NOTE | 2016-09-12 15:17 | Cardiology Progress Note ---
Pedro Salas Vanessa, RN, am scribing for, and in the presence of, Alfredo Domingo MD 15:17. Assessment and Plan - Time spent with patient Time spent with patient: Less than 30 minutes (1) Elevated troponin Status: Acute Assessment and plan: 1. Sinus bradycardia secondary to Toprol, her fatigue and dizziness have resolved now that it is been discontinued 2. She is ruled out for myocardial infarction by serial cardiac markers 3. Given her hypertension which is lisinopril to valsartan HCTZ 320/25 daily 4. Epigastric discomfort; GI workup in progress 5. Follow-up in 3 weeks with blood pressure check and lab 6. 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 History of hypertension, diabetes, hyperlipidemia, gastritis, obesity, sedentary lifestyle. Transferred from [facility] on 09/10/16 for further evaluation of abdominal pain and an abnormal troponin level of 0.10. While experiencing some apparent severe discomfort, she also had some transient bradycardia with heart rate down to the 40's for which she was given IV atropine per EMS en route to [facility]. Heart rate increased to 50's, appears to now be more toward baseline at 60. There was no AV block, and patient was asymptomatic. No chest pain, shortness of breath, palpitation, presyncope. Did have associated N/V with mid epigastric pain. No acute changes in EKG. Observed in ICU overnight and seen by Dr. Alegria prior to transfer to floor yesterday afternoon. Serial cardiac biomarkers repeated at [facility] with negative troponin and normal CPK. Metoprolol not resumed upon admission due to bradycardia. Has been seen and evaluated by GI. Subsequent EGD for recurrent nausea and vomiting. No significant findings. Gastroparesis is suspected, and patient to have gastric emptying scan tomorrow. Slightly drowsy this afternoon post EGD, but she rouses easily, coherent. present at bedside. Denies chest pain, shortness of breath, palpitation , presyncope, or other. No further nausea or vomiting this afternoon and denies epigastric pain at this time. Says "everything is calm right now." Reports she ate lunch, including green beans, and is tolerating without complaint. Hypertensive this afternoon with SBP 150-190 and DBP 80-100. Heart rate average of 60 bpm. Exam (Progress Note) - Constitutional Vitals: Period Temp Pulse Resp BP Sys/Lai Pulse Ox Last 24 Hr 96.9 F-97.2 F 54-63 18-20 144-189/71-99 93-99 General appearance: no acute distress, over weight Exam: General: Present: Appears Well, No Apparent Distress Neck: Present: Supple Neck, Midline Trachea, No JVD/HJR, No Masses, No Bruit, No Lymphadenopathy, No Thyromegaly Cardiac: Present: Regular Rhythm (transient sinus fredy in 50's), S1/S2, No Murmur, . Absent: Gallop Lungs: Present: Normal Exam, Clear Ascult./Percussion, Normal Breath Sounds, No Wheeze, Rales, Rhonchi Abdomen: Present: Soft, Active Bowel Sounds, No Masses, Tender Skin: Present: Clear. Absent: Rash, Suspicious Lesions, Ulceration Extremities: Present: Normal Gait, No Clubbing, No Cyanosis, No Edema, Normal Upper Extr. Pulses, Normal Lower Extr. Pulses - Head Head exam: Present: normal inspection, normocephalic, atraumatic - Neck Neck exam: Present: normal inspection - Respiratory Respiratory exam: Absent: stridor, wheezes - Cardiovascular Cardiovascular exam: Present: regular rate and rhythm. Absent: diastolic murmur , rubs - GI/Abdominal GI/Abdominal exam: Present: tenderness, soft - Extremities Exam Extremities exam: Absent: edema Result/EKG - Labs CBC & BMP: 09/11/16 07:14 09/11/16 07:14 Lab Results: I have reviewed the past 24 hour labs Labs: Laboratory Results - last 24 hr 09/11/16 09/11/16 09/12/16 16:34 19:06 04:52 POC Glucose 97 199 H Triglycerides 157 H Cholesterol 124 LDL Cholesterol 70.0 VLDL Cholesterol 31.4 HDL Cholesterol 47 Heart Disease Risk Ratio 2.64 09/12/16 09/12/16 09/12/16 08:06 09:40 11:51 POC Glucose 134 H 99 120 H Triglycerides Cholesterol LDL Cholesterol VLDL Cholesterol HDL Cholesterol Heart Disease Risk Ratio - EKG EKG results: interpreted by me, WNL EKG shows: sinus rhythm (heart rate 60's) IJose L Randall Scott, MD, personally performed the services described in this documentation, ascribed by Sammi Vasquez RN in my presence, and it is both accurate and complete 517 .
[2016-09-12] MEDS: VALSARTAN/HCTZ 160-12.5 MG TABLET PO SCH (21:17)
[2016-09-12] MEDS: ENOXAPARIN 40 MG/0.4 ML SYRINGE SUBCUT SCH (21:18)
[2016-09-12] MEDS: SIMVASTATIN 20 MG TABLET PO SCH (21:18)
[2016-09-13] MEDS: INSULIN LISPRO 100 UNIT/ML SUBCUT SCH ×2 (07:30→17:53)
[2016-09-13] MEDS: INSULIN GLARGINE 100 UNIT/ML SUBCUT SCH ×2 (08:00→17:52)
--- NOTE | 2016-09-13 09:40 | Gastrointestinal Progress Note ---
<SuadDiane Wendy - Last Filed: 09/13/16 09:37> Assessment and Plan (1) Epigastric pain Status: Acute Assessment and plan: 09/13-EGD findings noted. Gastric emptying scan pending at present. Plan and addendum to follow by Dr Steinberg. 09/11-Long history of episodes of epigastric pain with nausea, vomiting with hx of gastroparesis, now with worsening pain and N/V x 1 week with inability to eat /drink. Elevated troponin on admission, now normal. Cardiac consult pending. Last EGD 2011 with gastritis, GES with delayed emptying. Plan and addendum to follow by Dr Steinberg. Current Visit: Yes Gastroenterology - PN: Subj Interval history: CC: Nausea Pt is seen, awake and alert with spouse at side. She just returned from first part of gastric emptying scan and has to return at 11 for second part. She states her nausea has been about the same with no vomiting. EGD results noted to show no acute findings. Abdomen is soft, nontender. ROS: Denies SOB or chest pain Exam (Progress Note) - Constitutional Vitals: Period Temp Pulse Resp BP Sys/Lai Pulse Ox Last 24 Hr 97.5 F-98.6 F 56-96 18-19 144-175/67-99 93-99 General appearance: normal weight, no acute distress - Head Head exam: Present: normal inspection, normocephalic - Eye Eye exam: Present: other (lids and conjunctiva unremarkable). Absent: scleral icterus - ENT ENT exam: Present: normal exam, normal oropharynx - Neck Neck exam: Present: normal inspection - Respiratory Respiratory exam: Present: clear to auscultation bilaterally. Absent: rales, rhonchi, wheezes - Cardiovascular Cardiovascular exam: Present: regular rate and rhythm. Absent: diastolic murmur , JVD, systolic murmur - GI/Abdominal GI/Abdominal exam: Present: normal bowel sounds, soft. Absent: ascites, distended, mass, organomegaly, tenderness - Extremities Exam Extremities exam: Present: normal inspection, full ROM - Back Exam Back exam: Present: normal inspection - Neurological Exam Neurological exam: Present: alert, oriented X3 - Psychiatric Psychiatric exam: Present: normal affect, normal mood - Skin Skin exam: Present: normal color, warm, dry Results - Labs CBC & BMP: 09/11/16 07:14 09/11/16 07:14 Lab Results: I have reviewed the past 24 hour labs <Dionte Steinberg - Last Filed: 09/13/16 16:53> Exam (Progress Note) - Constitutional Vitals: Period Temp Pulse Resp BP Sys/Lai Pulse Ox Last 24 Hr 97.1 F-97.7 F 59-96 18-18 144-175/67-91 96-98 Results - Labs CBC & BMP: 09/11/16 07:14 09/11/16 07:14
--- NOTE | 2016-09-13 12:50 | Nuclear Medicine Report ---
NM gastric emptying study Indication: Diabetes. Recurrent nausea and vomiting. Gastric emptying Technique: 500 ?Ci technetium 99 labeled sulfur colloid was given by mouth in solid food (scrambled egg sandwich). Time activity curves of the stomach with linear fit analysis was performed. Findings: Linear fit progression analysis calculates activity half-life of 303 minutes. Linear fit is noncontributory. At 252 minutes, 40% emptying is noted, indicating 60% retained material in the stomach. Impression: Significant delayed gastric emptying. PROCEDURE INTERPRETED AT [facility] DEPARTMENT OF RADIOLOGY Final Report Signed by: Casey Rao M.D.
[2016-09-13] MEDS: VALSARTAN/HCTZ 160-12.5 MG TABLET PO SCH (12:59)
[2016-09-13] MEDS: HYDROXYCHLOROQUINE 200 MG TABLET PO SCH (13:00)
[2016-09-13] MEDS: amLODIPine 10 MG TABLET PO SCH (13:01)
[2016-09-13] MEDS: sitaGLIPtin 100 MG TABLET PO SCH (13:01)
[2016-09-13] MEDS: GABAPENTIN 300 MG CAPSULE PO SCH ×2 (13:01→20:18)
[2016-09-13] MEDS: ASPIRIN EC 325 MG TABLET PO SCH (13:01)
[2016-09-13] MEDS: PANTOPRAZOLE 40 MG VIAL IV SCH (13:03)
[2016-09-13] MEDS ORDERED: DOCUSATE SODIUM 100 MG CAPSULE PO PRN (14:14)
--- NOTE | 2016-09-13 14:20 | Hospitalist Progress Note ---
Assessment and Plan (1) Epigastric pain Status: Acute Assessment and plan: Due to gastroparesis being treated with the IV metoclopramide by GI service. We will need to follow if patient has improvement of the symptoms. And to follow follow GI recommendation Current Visit: Yes (2) Anemia Status: Chronic Assessment and plan: Stable Current Visit: Yes (3) Diabetes mellitus Status: Chronic Assessment and plan: Blood sugar is controlled continue current regimen Current Visit: Yes (4) Hypertension Status: Chronic Assessment and plan: She is off beta milan. Cardiology has adjusted her antihypertensive medications and monitor the blood pressure reading had been elevated except one reported this morning. Current Visit: Yes Qualifiers: Hypertension type: essential hypertension Qualified Code(s): I10 - Essential (primary) hypertension (5) Sinus bradycardia Status: Acute Assessment and plan: Probably due to medications patient has been on beta milan and clonidine. She has been off beta milan now and heart rate has improved Current Visit: Yes (6) Constipation Status: Acute Assessment and plan: Add colace Current Visit: Yes Hospitalist: Subjective Interval history: Ms. Duron is a 46 year old female with hypertension and diabetes mellitus and GERD. She was admitted yesterday as transfer from [facility]. She presented with epigastric pain bradycardia and had the hypotension with elevated troponin. According to patient she has epigastric discomfort/pain . She had the EGD last year and was told to have a acid reflux was listed to be on Protonix at home. She had troponin of 0.1 at outside facility. She had hypotension as low as 102/39. She her heart rate was in the 40s. She had been on multiple medications at home including clonidine and metoprolol 100 mg daily. I had cut down the metoprolol from 100-50 mg daily. Patient was seen by the cardiology and had completely stopped the medication Patient also seen by the GI and underwent EGD 09/12/15 and and it was reported negative. Gastric emptying study done today showed significant delaying of gastric emptying. GI has ordered Reglan 10 mg IV every 6. This morning when patient was seen she had complained of nausea or vomiting. She does have constipation. She was given food to check gastric emptying had caused some abdominal discomfort pointed to epigastric area Exam - Constitutional Vitals: Period Temp Pulse Resp BP Sys/Lai Pulse Ox Last 24 Hr 97.5 F-98.6 F 60-96 18-18 144-175/67-89 96-98 General appearance: no acute distress - Respiratory Respiratory exam: Present: clear to auscultation bilaterally. Absent: rhonchi, stridor - Cardiovascular Cardiovascular exam: Present: regular rate and rhythm. Absent: tachycardia - GI/Abdominal GI/Abdominal exam: Present: normal bowel sounds, soft. Absent: tenderness ( except mild discomfort on palpation at the epigastric area) - Extremities Exam Extremities exam: Present: normal inspection. Absent: edema - Neurological Exam Neurological exam: Present: alert, oriented X3 Results - Labs CBC & BMP: 09/11/16 07:14 09/11/16 07:14 Lab Results: I have reviewed the past 24 hour labs
[2016-09-13] MEDS: METOCLOPRAMIDE 10 MG/2 ML VIAL IV SCH ×2 (17:55→23:39)
[2016-09-13] MEDS: ENOXAPARIN 40 MG/0.4 ML SYRINGE SUBCUT SCH (20:18)
[2016-09-13] MEDS: SIMVASTATIN 20 MG TABLET PO SCH (20:18)
[2016-09-13] MEDS: ONDANSETRON 4 MG/2 ML VIAL IV PRN (20:33)
[2016-09-14] MEDS: METOCLOPRAMIDE 10 MG/2 ML VIAL IV SCH (06:41)
--- NOTE | 2016-09-14 07:52 | Hospitalist Progress Note ---
Assessment and Plan (1) Epigastric pain Status: Chronic Assessment and plan: gastric emptying of 40% Current Visit: Yes (2) Diabetes mellitus Status: Chronic Current Visit: Yes (3) Sinus bradycardia Status: Acute Assessment and plan: Resolved with withdraw of chronotropically active agents. Current Visit: Yes Hospitalist: Subjective Interval history: 46 yo female with abdominal pain with delayed gastric emptying. Appears did not tolerate reglan IV, not clear what was the issue, however feels much better this morning. Though had sinus bradycardia at transfer this has remitted with holding chronotropic agents. Abnormal troponins could not be replicated here. Exam - Constitutional Vitals: Period Temp Pulse Resp BP Sys/Lai Pulse Ox Last 24 Hr 97.1 F-97.9 F 59-74 16-40 124-197/61-100 97-100 General appearance: over weight - Respiratory Respiratory exam: Present: clear to auscultation bilaterally. Absent: rales, rhonchi, wheezes - Cardiovascular Cardiovascular exam: Present: regular rate and rhythm - GI/Abdominal GI/Abdominal exam: Present: normal bowel sounds. Absent: organomegaly, tenderness - Extremities Exam Extremities exam: Absent: edema - Neurological Exam Neurological exam: Present: alert, oriented X3 Results - Labs CBC & BMP: 09/11/16 07:14 09/11/16 07:14
[2016-09-14] MEDS: INSULIN LISPRO 100 UNIT/ML SUBCUT SCH (08:57)
[2016-09-14] MEDS: INSULIN GLARGINE 100 UNIT/ML SUBCUT SCH (08:59)
[2016-09-14] MEDS: HYDROXYCHLOROQUINE 200 MG TABLET PO SCH (09:02)
[2016-09-14] MEDS: GABAPENTIN 300 MG CAPSULE PO SCH (09:03)
[2016-09-14] MEDS: sitaGLIPtin 100 MG TABLET PO SCH (09:03)
[2016-09-14] MEDS: VALSARTAN/HCTZ 160-12.5 MG TABLET PO SCH (09:03)
[2016-09-14] MEDS: ASPIRIN EC 325 MG TABLET PO SCH (09:03)
[2016-09-14] MEDS: amLODIPine 10 MG TABLET PO SCH (09:03)
[2016-09-14] MEDS: PANTOPRAZOLE 40 MG VIAL IV SCH (09:04)
--- NOTE | 2016-09-14 09:51 | Gastrointestinal Progress Note ---
<Diane Borjas - Last Filed: 09/14/16 12:55> Assessment and Plan (1) Epigastric pain Status: Chronic Assessment and plan: 09/14-Gastric scan results noted. Reglan initiated with mild reaction initially. Second dose more tolerated. Give Reglan po this morning and see how patient tolerates. Okay to discharge home from GI standpoint. Pt needs fu appt November [address] Steinberg. 09/13-EGD findings noted. Gastric emptying scan pending at present. Plan and addendum to follow by Dr Steinberg. 09/11-Long history of episodes of epigastric pain with nausea, vomiting with hx of gastroparesis, now with worsening pain and N/V x 1 week with inability to eat /drink. Elevated troponin on admission, now normal. Cardiac consult pending. Last EGD 2011 with gastritis, GES with delayed emptying. Plan and addendum to follow by Dr Steinberg. Current Visit: Yes Gastroenterology - PN: Subj Interval history: CC: Nausea, gastroparesis Pt is seen, awake, and alert sitting on side of bed. States she is feeling a little better today. Her gastric emptying scan on yesterday was severely delayed. We started IV reglan on yesterday and she states she had a mild reaction to this initially with a strange feeling over her body and a strange sensation in her chest. The dose was repeated last night and she states it was better with only a mild warming sensation as the medication was injected. She has not had Reglan this morning as of yet. She denies any abd pain, vomiting. She is tolerating her diet as present time. ROS: Denies SOB or chest pain Exam (Progress Note) - Constitutional Vitals: Period Temp Pulse Resp BP Sys/Lai Pulse Ox Last 24 Hr 97.1 F-97.9 F 59-74 16-40 124-197/61-100 97-100 General appearance: normal weight, no acute distress - Head Head exam: Present: normal inspection, normocephalic - Eye Eye exam: Present: other (lids and conjunctiva unremarakble). Absent: scleral icterus - ENT ENT exam: Present: normal exam, normal oropharynx - Neck Neck exam: Present: normal inspection - Respiratory Respiratory exam: Present: clear to auscultation bilaterally. Absent: rales, rhonchi, wheezes - Cardiovascular Cardiovascular exam: Present: regular rate and rhythm. Absent: diastolic murmur , JVD, systolic murmur - GI/Abdominal GI/Abdominal exam: Present: normal bowel sounds, soft. Absent: ascites, distended, mass, organomegaly, tenderness - Extremities Exam Extremities exam: Present: normal inspection, full ROM - Back Exam Back exam: Present: normal inspection - Neurological Exam Neurological exam: Present: alert, oriented X3 - Psychiatric Psychiatric exam: Present: normal affect, normal mood - Skin Skin exam: Present: normal color, warm, dry Results - Labs CBC & BMP: 09/11/16 07:14 09/11/16 07:14 Lab Results: I have reviewed the past 24 hour labs Specialty Discharge - Follow Up or Referrals Follow up with: Dionte Steinberg MD [Physician] - 11/08/16 2:45 pm <Dionte Steinberg - Last Filed: 09/14/16 18:31> Results - Labs CBC & BMP: 09/11/16 07:14 09/11/16 07:14
[2016-09-14] MEDS ORDERED: METOCLOPRAMIDE 10 MG TABLET PO SCH (13:00)
--- NOTE | 2016-09-14 15:06 | Discharge Summary ---
Hospital Course - Hospital Course Hospital Course: 46 yo female with abdominal pain with normal EGD with gastric emptying of 40%. Favorable clinical response to reglan. Also demonstrated sinus bradycardia on several chronotropically active agents. Managed with medication withdraw. She is released on oral reglan with scheduled outpatient follow-up with Dr Steinberg. Diagnosis - Discharge Diagnosis (1) Epigastric pain Status: Chronic (2) Diabetes mellitus Status: Chronic (3) Sinus bradycardia Status: Acute Specialty Discharge - Follow Up or Referrals Follow up with: Dionte Steinberg MD [Physician] - 11/08/16 2:45 pm Discharge Plan - Discharge Data Disposition: Disch To Home/Self Care Discharge Diet: diabetic diet Activity: resume usual activities as tolerated - Discharge Medications New Metoclopramide Tab [Reglan Tab] 10 mg PO Q6H #120 tablet Metoclopramide Tab [Reglan Tab] 10 mg PO Q6H tablet Continue Gabapentin Cap/Tab [Neurontin Cap/Tab] 600 mg PO BID amLODIPine [Norvasc] 10 mg PO DAILY Saxagliptin HCl [Onglyza] 2.5 mg PO DAILY Hydroxychloroquine [Plaquenil] 400 mg PO DAILY Lisinopril 20 mg PO BID Tramadol HCl [Tramadol Tab] 50 mg PO DAILY PRN PRN Reason: Pain Insulin Detemir [Levemir FlexPen] 46 unit SUBCUT BID W/MEALS Insulin Aspart [NovoLOG FlexPen] 15 unit SUBCUT BIDAC Simvastatin 20 mg PO BEDTIME Pantoprazole Tab [Protonix Tab] 40 mg PO BID Discontinued cloNIDine TAB [Catapres Tab] 0.2 mg PO BID Ranitidine Tab [Zantac Tab] 150 mg PO BID Metoprolol Succinate Xl [Toprol Xl] 100 mg PO DAILY - Follow Up or Referral Follow Up: Dionte Steinberg MD [Physician] - 11/08/16 2:45 pm - Forms/Instructions DS: Provider Date of admission: 09/14/16 12:10 Primary care physician: Victoriano Ozuna MD Attending physician on admission: Andreas Cavanaugh M.D. Discharging clinician: David Merchant MD Expected date of discharge: 09/14/16
[2016-09-14 18:44] VITALS: BP 133/75
== END 2016-09-14 16:15 | disposition home or self-care (01) ==
LOC: EDBD → EDUNIT# → N.ED 18:05 → N.EDINP 18:05 → SUATTDRO 19:46 → N.ICU 20:12 → N.4E 09-11 13:58 → UNDODISIN 09-14 16:15
PROVIDERS: ADMIT Internal Medicine; ATTEND Internal Medicine Cardiovascular Disease

== ENCOUNTER 2020-06-29 16:04 | Inpatient (IN) ==
[2020-06-29] MEDS ORDERED: ONDANSETRON 4 MG/2 ML VIAL IV PRN (21:52)
[2020-06-29] MEDS ORDERED: DOCUSATE SODIUM 100 MG CAPSULE PO PRN (21:52)
[2020-06-29] MEDS ORDERED: GLUCAGON 1 MG VIAL IM PRN (21:52)
[2020-06-29] MEDS ORDERED: DEXTROSE 50% 25 GM/50 ML VIAL IV PRN (21:52)
[2020-06-29] MEDS ORDERED: FUROSEMIDE 20 MG/2 ML VIAL IV PRN (22:30)
[2020-06-29] MEDS ORDERED: SODIUM CHLORIDE 0.9% 1,000 ML IV PRN (22:30)
[2020-06-29] MEDS: ACETAMINOPHEN 325 MG TABLET PO PRN (22:47)
[2020-06-29 23:04] LABS: Basophils % 0.3 % (0.0-0.8); Eosinophils # 0.1 10*3/uL (0.0-0.87); Eosinophils % 1.9 % (0.00-10.9); Hemoglobin 6.9 GM/DL (12.0-16.0); Immature Granulocytes % 2.9 %; Lymphocytes # 0.9 10*3/uL (1.4-4.0); Lymphocytes % 13.4 % (21.3-54.2); Mean Corpuscular HGB Conc 28.8 GM/DL (32-36); Mean Corpuscular Volume 93.8 FL (87-102); Mean Platelet Volume 8.8 FL (9.6-12.0); Monocytes % 9.4 % (1.7-12.7); NRBC # 0.07 10*3/uL; Neutrophils % 72.1 % (38.7-73.9); Platelet Count 183 T/CUMM (130-400); Red Blood Count 2.56 MC/CUMM (3.8-5.5); Red Cell Distribution Width 21.9 % (9.3-17.3); White Blood Count 6.9 T/CUMM (4-12)
[2020-06-29 23:17] LABS: INR 1.3; PT Patient Result 13.3 SECS (9.8-11.9)
[2020-06-29 23:36] LABS: Albumin 2.1 G/DL (3.4-5.0); Calcium 8.3 MG/DL (8.5-10.1); Osmolality,Calculated 287.8 MOS/KG (273-304); Risk Ratio 3.21; Thyroid Stimulating Hormone 6.6 uIU/ml (0.358-3.74); Total Protein 8.4 G/DL (6.4-8.3); VLDL CHOLESTEROL 22.4 MG/DL
[2020-06-29 23:44] LABS: Eosinophils 2 % (0-10); Lymphocytes 11 % (20-55); Segmented Neutrophils 80 % (50-85); Total Cells Counted 100
[2020-06-29 23:46] LABS: Hypochromasia 3+; Platelet Estimate Normal; Polychromasia Few
[2020-06-30] MEDS: PANTOPRAZOLE 40 MG VIAL IV SCH ×3 (00:12→21:36)
[2020-06-30] MEDS: FUROSEMIDE 20 MG/2 ML VIAL IV PRN ×2 (05:03→09:50)
[2020-06-30] MEDS: traMADol 50 MG TABLET PO PRN ×2 (05:04→22:57)
[2020-06-30] MEDS: hydrALAZINE 20 MG/1 ML VIAL IV PRN ×3 (05:04→20:30)
[2020-06-30 08:35] LABS: Calcium 8.1 MG/DL (8.5-10.1); Osmolality,Calculated 281.3 MOS/KG (273-304)
[2020-06-30] MEDS: INSULIN LISPRO 100 UNIT/ML SUBCUT SCH ×4 (09:10→22:00)
[2020-06-30 12:37] LABS: Basophils % 0.4 % (0.0-0.8); Eosinophils # 0.2 10*3/uL (0.0-0.87); Eosinophils % 2.1 % (0.00-10.9); Hematocrit 28.7 VOL% (35.7-47.0); Hemoglobin 8.5 GM/DL (12.0-16.0); Immature Granulocytes % 3.6 %; Immature Granulocytes Absolute 0.25 #; Lymphocytes # 1.1 10*3/uL (1.4-4.0); Lymphocytes % 15.1 % (21.3-54.2); Mean Corpuscular HGB Conc 29.6 GM/DL (32-36); Mean Corpuscular Volume 92.9 FL (87-102); Mean Platelet Volume 8.8 FL (9.6-12.0); Monocytes % 10.1 % (1.7-12.7); NRBC # 0.08 10*3/uL; Neutrophils % 68.7 % (38.7-73.9); Platelet Count 170 T/CUMM (130-400); Red Blood Count 3.09 MC/CUMM (3.8-5.5); Red Cell Distribution Width 20.6 % (9.3-17.3)
[2020-06-30] MEDS ORDERED: INFLUENZA VIRUS VACCINE 0.5 ML SYRINGE IM ONE (14:10)
[2020-06-30] MEDS: ACETAMINOPHEN 325 MG TABLET PO PRN (20:31)
[2020-07-01] MEDS: ACETAMINOPHEN 325 MG TABLET PO PRN (01:27)
[2020-07-01 05:35] LABS: Basophils % 0.2 % (0.0-0.8); Eosinophils # 0.2 10*3/uL (0.0-0.87); Eosinophils % 3.7 % (0.00-10.9); Hematocrit 27.5 VOL% (35.7-47.0); Hemoglobin 8.1 GM/DL (12.0-16.0); Immature Granulocytes Absolute 0.22 #; Lymphocytes # 0.9 10*3/uL (1.4-4.0); Lymphocytes % 16.7 % (21.3-54.2); Mean Corpuscular HGB Conc 29.5 GM/DL (32-36); Mean Corpuscular Volume 92.9 FL (87-102); Monocytes % 12.9 % (1.7-12.7); NRBC # 0.05 10*3/uL; Neutrophils % 62.5 % (38.7-73.9); Platelet Count 164 T/CUMM (130-400); Red Blood Count 2.96 MC/CUMM (3.8-5.5); Red Cell Distribution Width 20.6 % (9.3-17.3); White Blood Count 5.4 T/CUMM (4-12)
[2020-07-01 06:22] LABS: Albumin 1.9 G/DL (3.4-5.0); Osmolality,Calculated 278.5 MOS/KG (273-304)
[2020-07-01 06:23] LABS: Calcium 7.9 MG/DL (8.5-10.1); Osmolality,Calculated 277.7 MOS/KG (273-304)
[2020-07-01] MEDS: LACTATED RINGERS 1,000 ML IV SCH (07:20)
[2020-07-01] MEDS: INSULIN LISPRO 100 UNIT/ML SUBCUT SCH ×4 (08:06→22:37)
[2020-07-01] MEDS ORDERED: propofoL 200 MG/20 ML VIAL IV ONE (08:42)
[2020-07-01] MEDS ORDERED: LIDOCAINE 2% 5 ML VIAL ONE (08:42)
[2020-07-01] MEDS: PANTOPRAZOLE 40 MG VIAL IV SCH ×2 (10:02→21:44)
[2020-07-01] MEDS: hydrALAZINE 20 MG/1 ML VIAL IV PRN (21:54)
[2020-07-02 06:23] LABS: Osmolality,Calculated 285.3 MOS/KG (273-304)
[2020-07-02] MEDS ORDERED: ALBUMIN 25% 25 GM in PREMIX 1 EACH IV ONE (09:30)
[2020-07-02] MEDS: INSULIN LISPRO 100 UNIT/ML SUBCUT SCH ×4 (10:11→21:42)
[2020-07-02] MEDS: PANTOPRAZOLE 40 MG VIAL IV SCH ×2 (10:12→21:41)
[2020-07-02] MEDS: hydrALAZINE 25 MG TABLET PO SCH ×3 (10:12→21:41)
[2020-07-02] MEDS: hydrALAZINE 20 MG/1 ML VIAL IV PRN (15:57)
[2020-07-02] MEDS: BUMETANIDE 1 MG/4 ML VIAL IV SCH (15:59)
[2020-07-02] MEDS: LACTATED RINGERS 1,000 ML IV SCH (16:41)
[2020-07-02] MEDS: traMADol 50 MG TABLET PO PRN (21:41)
[2020-07-02] MEDS: MIRTAZAPINE 15 MG TABLET PO SCH (21:42)
[2020-07-03 06:48] LABS: Basophils % 0.4 % (0.0-0.8); Eosinophils # 0.2 10*3/uL (0.0-0.87); Eosinophils % 3.3 % (0.00-10.9); Hematocrit 26.5 VOL% (35.7-47.0); Immature Granulocytes % 0.8 %; Immature Granulocytes Absolute 0.04 #; Lymphocytes # 1.1 10*3/uL (1.4-4.0); Lymphocytes % 22.1 % (21.3-54.2); Mean Corpuscular HGB Conc 30.2 GM/DL (32-36); Mean Platelet Volume 9.1 FL (9.6-12.0); Monocytes % 15.2 % (1.7-12.7); Neutrophils % 58.2 % (38.7-73.9); Platelet Count 169 T/CUMM (130-400); Red Blood Count 2.85 MC/CUMM (3.8-5.5); Red Cell Distribution Width 20.7 % (9.3-17.3); White Blood Count 4.8 T/CUMM (4-12)
[2020-07-03 07:57] LABS: Osmolality,Calculated 285.3 MOS/KG (273-304)
[2020-07-03] MEDS: hydrALAZINE 25 MG TABLET PO SCH ×3 (10:38→20:58)
[2020-07-03] MEDS: BUMETANIDE 1 MG/4 ML VIAL IV SCH ×2 (10:39→16:55)
[2020-07-03] MEDS: LACTATED RINGERS 1,000 ML IV SCH (10:40)
[2020-07-03] MEDS: PANTOPRAZOLE 40 MG VIAL IV SCH ×2 (10:40→20:58)
[2020-07-03] MEDS: INSULIN LISPRO 100 UNIT/ML SUBCUT SCH ×4 (10:40→20:58)
[2020-07-03] MEDS: LACTULOSE 20 GM/30 ML UDCUP PO SCH ×2 (16:54→20:58)
[2020-07-03] MEDS: MIRTAZAPINE 15 MG TABLET PO SCH (20:58)
[2020-07-04] MEDS: ACETAMINOPHEN 325 MG TABLET PO PRN ×2 (02:52→22:07)
[2020-07-04] MEDS: hydrALAZINE 20 MG/1 ML VIAL IV PRN (05:05)
[2020-07-04 05:15] LABS: Basophils % 0.4 % (0.0-0.8); Eosinophils # 0.1 10*3/uL (0.0-0.87); Eosinophils % 2.2 % (0.00-10.9); Hemoglobin 8.1 GM/DL (12.0-16.0); Immature Granulocytes % 0.4 %; Immature Granulocytes Absolute 0.02 #; Lymphocytes % 19.8 % (21.3-54.2); Mean Corpuscular Volume 91.8 FL (87-102); Mean Platelet Volume 8.9 FL (9.6-12.0); Monocytes % 14.7 % (1.7-12.7); Neutrophils % 62.5 % (38.7-73.9); Platelet Count 164 T/CUMM (130-400); Red Blood Count 2.94 MC/CUMM (3.8-5.5); Red Cell Distribution Width 20.8 % (9.3-17.3)
[2020-07-04] MEDS: traMADol 50 MG TABLET PO PRN (06:34)
[2020-07-04] MEDS: INSULIN LISPRO 100 UNIT/ML SUBCUT SCH ×4 (08:43→20:48)
[2020-07-04] MEDS: LACTATED RINGERS 1,000 ML IV SCH (09:16)
[2020-07-04] MEDS: LACTULOSE 20 GM/30 ML UDCUP PO SCH ×3 (09:18→20:46)
[2020-07-04] MEDS: PANTOPRAZOLE 40 MG VIAL IV SCH ×2 (09:18→20:48)
[2020-07-04] MEDS: hydrALAZINE 25 MG TABLET PO SCH ×3 (09:18→20:47)
[2020-07-04] MEDS: BUMETANIDE 1 MG/4 ML VIAL IV SCH ×2 (09:19→16:33)
[2020-07-04 18:40] LABS: Protein/Creatinine Ratio,Urine 1.9 RATIO
[2020-07-04] MEDS: MIRTAZAPINE 15 MG TABLET PO SCH (20:47)
[2020-07-04] MEDS ORDERED: MIRTAZAPINE 15 MG TABLET PO SCH (21:00)
[2020-07-05 07:42] LABS: Basophils % 0.6 % (0.0-0.8); Eosinophils # 0.3 10*3/uL (0.0-0.87); Eosinophils % 4.8 % (0.00-10.9); Hematocrit 26.9 VOL% (35.7-47.0); Immature Granulocytes % 0.4 %; Immature Granulocytes Absolute 0.02 #; Lymphocytes # 1.2 10*3/uL (1.4-4.0); Lymphocytes % 23.1 % (21.3-54.2); Mean Corpuscular HGB Conc 29.7 GM/DL (32-36); Mean Corpuscular Volume 91.5 FL (87-102); Mean Platelet Volume 9.2 FL (9.6-12.0); Monocytes % 14.7 % (1.7-12.7); Neutrophils % 56.4 % (38.7-73.9); Platelet Count 179 T/CUMM (130-400); Red Blood Count 2.94 MC/CUMM (3.8-5.5); Red Cell Distribution Width 20.2 % (9.3-17.3); White Blood Count 5.2 T/CUMM (4-12)
[2020-07-05] MEDS: INSULIN LISPRO 100 UNIT/ML SUBCUT SCH ×4 (08:10→21:42)
[2020-07-05] MEDS ORDERED: DIAZEPAM 5 MG TABLET PO ONE (08:15)
[2020-07-05] MEDS: LACTATED RINGERS 1,000 ML IV SCH (08:17)
[2020-07-05] MEDS: hydrALAZINE 25 MG TABLET PO SCH ×3 (08:17→21:36)
[2020-07-05 08:35] LABS: Albumin 2.1 G/DL (3.4-5.0); Bilirubin,Total 1.5 MG/DL (0.2-1.0); Calcium 8.1 MG/DL (8.5-10.1); Osmolality,Calculated 284.4 MOS/KG (273-304); Total Protein 8.1 G/DL (6.4-8.3)
[2020-07-05] MEDS: LACTULOSE 20 GM/30 ML UDCUP PO SCH ×3 (09:03→21:36)
[2020-07-05] MEDS: BUMETANIDE 1 MG/4 ML VIAL IV SCH ×2 (09:05→15:35)
[2020-07-05] MEDS: SODIUM CHLORIDE 0.45% 1,000 ML IV SCH (09:06)
[2020-07-05] MEDS: PANTOPRAZOLE 40 MG VIAL IV SCH ×2 (09:06→21:37)
[2020-07-05 11:08] LABS: Neutrophils,Peritoneal Fluid 32 %
[2020-07-05 11:10] LABS: RBC,Peritoneal Fluid 109 T/CUMM
[2020-07-05] MEDS: traMADol 50 MG TABLET PO PRN (16:43)
[2020-07-05] MEDS: ACETAMINOPHEN 325 MG TABLET PO PRN (17:15)
[2020-07-05] MEDS: MIRTAZAPINE 15 MG TABLET PO SCH (21:36)
[2020-07-06 05:21] LABS: Basophils % 0.4 % (0.0-0.8); Eosinophils # 0.3 10*3/uL (0.0-0.87); Eosinophils % 5.6 % (0.00-10.9); Hemoglobin 7.7 GM/DL (12.0-16.0); Immature Granulocytes % 0.6 %; Immature Granulocytes Absolute 0.03 #; Lymphocytes # 1.3 10*3/uL (1.4-4.0); Lymphocytes % 24.2 % (21.3-54.2); Mean Corpuscular HGB Conc 29.6 GM/DL (32-36); Mean Corpuscular Volume 92.5 FL (87-102); Mean Platelet Volume 9.3 FL (9.6-12.0); Monocytes % 15.1 % (1.7-12.7); Neutrophils % 54.1 % (38.7-73.9); Platelet Count 171 T/CUMM (130-400); Red Blood Count 2.81 MC/CUMM (3.8-5.5); White Blood Count 5.2 T/CUMM (4-12)
[2020-07-06 05:38] LABS: Calcium 7.9 MG/DL (8.5-10.1); Osmolality,Calculated 284.4 MOS/KG (273-304)
[2020-07-06] MEDS: INSULIN LISPRO 100 UNIT/ML SUBCUT SCH ×3 (08:12→16:11)
[2020-07-06] MEDS: LACTATED RINGERS 1,000 ML IV SCH (08:12)
[2020-07-06] MEDS: LACTULOSE 20 GM/30 ML UDCUP PO SCH ×2 (08:13→15:02)
[2020-07-06] MEDS: hydrALAZINE 25 MG TABLET PO SCH ×2 (08:13→15:02)
[2020-07-06] MEDS ORDERED: DIAZEPAM 5 MG TABLET PO ONE (08:30)
[2020-07-06] MEDS ORDERED: SODIUM CHLORIDE 0.45% 1,000 ML IV SCH (08:30)
[2020-07-06] MEDS: SODIUM CHLORIDE 0.45% 1,000 ML IV SCH (08:43)
[2020-07-06] MEDS: BUMETANIDE 1 MG/4 ML VIAL IV SCH ×2 (08:43→15:02)
[2020-07-06 15:52] VITALS: BP 132/71
[2020-07-06] MEDS ORDERED: PANTOPRAZOLE 40 MG TABLET PO SCH (19:00)
== END 2020-07-06 18:30 | disposition home health service (06) | DRG 432 ==
LOC: N.TELEN → SUATTDRO 21:41
PROVIDERS: ADMIT Internal Medicine; ATTEND Internal Medicine